=== PATIENT | female | born 1985 | race Caucasian/White ===

== ENCOUNTER 2017-11-09 14:36 | Emergency (ER) | payer OTHER ==
[~2017-11-09] VITALS: Ht 165.1 cm; Wt 45.5 kg
[~2017-11-09 14:36] MED LIST: CLIN300C53 PO; FLO0.4C PO; HYDR-569 PO; KETO10TA2 PO; METO-292 PO; NITR100C6 PO; PHE12.5T PO; POTA20TA19 PO; PROC5TAB56 PO; SUCR1ORA2 PO; TRIM300C14 PO; TRIM300C24 PO
[2017-11-09 16:47] LABS: BASOPHILS % (AUTO) 0.3 % (0-1); EOSINOPHILS # (AUTO) 0.2 X10'3 (0-0.9); EOSINOPHILS % (AUTO) 1.3 % (0-6); HEMATOCRIT 39.7 % (35.0-45.0); HEMOGLOBIN 12.8 g/dl (12.0-16.0); LYMPHOCYTES # (AUTO) 1.8 X10'3 (1.1-4.8); LYMPHOCYTES % (AUTO) 15.5 % (21-51); MEAN CORPUSCULAR HGB CONC 32.4 % (33.0-36.5); MEAN CORPUSCULAR VOLUME 77.2 FL (78-98); MEAN PLATELET VOLUME 8.9 FL (7.4-10.4); MONOCYTES # (AUTO) 0.8 X10'3 (0-0.9); MONOCYTES % (AUTO) 6.8 % (2-12); NEUTROPHILS # (AUTO) 8.6 X10'3 (1.8-7.7); NEUTROPHILS % (AUTO) 76.1 % (42-75); PLATELET COUNT 346 X10'3 (140-440); RED BLOOD COUNT 5.14 X10'6 (4.20-5.60); RED CELL DISTRIBUTION WIDTH 17.3 % (11.5-14.5); WHITE BLOOD COUNT 11.3 X10'3 (4.5-11.0)
[2017-11-09 16:49] LABS: CLARITY,URINE SLIGHTLY CLOUDY (Clear); COLOR,URINE YELLOW (Yellow); GLUCOSE, URINE NEGATIVE (Neg); KETONES,URINE >=80 mg/dl (Neg); LEUKOCYTE ESTERASE ,URINE NEGATIVE (Neg); NITRITES, URINE POSITIVE (Neg); OCCULT BLOOD,URINE TRACE-LYSED (Neg); PROTEIN,URINE NEGATIVE (Neg); UROBILINOGEN,URINE 0.2 E.U/dL (0.2-1.0)
[2017-11-09 16:54] LABS: UA COLLECTION TYPE CLN CATCH MIDSTREAM
[2017-11-09 16:55] LABS: BACTERIA,URINE 4+ /HPF (Neg); RBC,URINE 0-2 /HPF (0-2); WBC,URINE 0-4 /HPF (0-4)
[2017-11-09 16:56] LABS: INR 1.1 INR; PROTHROMBIN TIME 11.7 SECONDS (9.0-12.0)
[2017-11-09 16:56] LABS: MUCUS STRANDS MANY /LPF (Neg); SQUAMOUS EPITHELIAL CELL,UR MODERATE /LPF (FEW); TRANSITIONAL EPI CELLS,URINE FEW /HPF
[2017-11-09 17:07] LABS: ALANINE AMINOTRANSFERASE 22 U/L (12-78); ALBUMIN 4.5 G/DL (3.4-5.0); ALBUMIN/GLOBULIN RATIO 1.2 (1.1-1.5); ALKALINE PHOSPHATASE 51 IU/L (46-116); ANION GAP 12 (8-16); ASPARTATE AMINO TRANSFERASE 11 U/L (10-37); BILIRUBIN,TOTAL 0.6 MG/DL (0.1-1.0); BLOOD UREA NITROGEN 8 MG/DL (7-18); BUN/CREATININE RATIO 9.8 (6.6-38.0); CALCIUM 9.4 MG/DL (8.5-10.1); CHLORIDE 100 MMOL/L (99-107); CREATININE 0.82 MG/DL (0.40-0.90); GLUCOSE 111 MG/DL (70-104); POTASSIUM 3.2 MMOL/L (3.5-5.1); SODIUM 142 MMOL/L (135-145); TOTAL CARBON DIOXIDE 29.7 MMOL/L (24-32); TOTAL PROTEIN 8.3 G/DL (6.4-8.2); eGFR 81 ML/MIN
[2017-11-09] MEDS ORDERED: ketorolac trometh inj. 60 MG/2 ML VIAL IM ONE (18:50)
[2017-11-09] MEDS ORDERED: ondansetron 4mg rapidly disintigrating tab PO ONE (18:50)
[2017-11-09 19:00] LABS: LIPASE 63 U/L (73-393)
[2017-11-09 19:03] LABS: ETHANOL < 0.010 GM/DL (0.0-0.010)
[2017-11-09] MEDS ORDERED: cefTRIAXone 1g/NS 100ml IVPB 100 ML IV ONE (21:00)
[2017-11-09] MEDS ORDERED: CefTRIAXone 1000mg IM Kit (w/lidocaine diluent) IM ONE (21:20)
[2017-11-09] MEDS ORDERED: TRIM300C14 PO (21:27)
[2017-11-09 21:33] LABS: URINE HCG NEGATIVE (NEG)
[2017-11-09 21:42] VITALS: BP 141/84
[2017-11-09 21:44] LABS: URINE AMPHETAMINE SCREEN NEGATIVE (Neg); URINE BARBITUATE SCREEN NEGATIVE (Neg); URINE BENZODIAZEPINES SCREEN NEGATIVE (Neg); URINE CANNABINOID SCREEN POSITIVE (Neg); URINE COCAINE SCREEN NEGATIVE (Neg); URINE METHADONE SCREEN NEGATIVE (Neg); URINE OPIATE SCREEN POSITIVE (Neg); URINE PHENCYCLIDINE SCREEN NEGATIVE (Neg)
== END 2017-11-09 21:44 | disposition home or self-care (01) ==
LOC: ER 14:37
DX: N39.0 Urinary tract infection, site not specified (principal); R10.84 Generalized abdominal pain; R11.2 Nausea with vomiting, unspecified; K21.9 Gastro-esophageal reflux disease without esophagitis; E03.9 Hypothyroidism, unspecified; F32.9 Major depressive disorder, single episode, unspecified; F12.90 Cannabis use, unspecified, uncomplicated; F17.200 Nicotine dependence, unspecified, uncomplicated; Z87.442 Personal history of urinary calculi; Z79.899 Other long term (current) drug therapy
CPT/HCPCS: 36415; 74176; 80053; 80305; 80320; 81001; 81025; 83605; 83690; 84145; 85025; 85610; 87040; 87077; 87088; 87186; 96372; 99285; J0696; J1885

== ENCOUNTER → 2017-11-10 | Emergency (ER) | payer OTHER ==
[~2017-11-10] VITALS: Ht 5451.6 cm; Wt 45.4 kg
[~2017-11-10] MED LIST changes: +ketorolac trometh. 30mg/ml inj. IM ONE
[2017-11-10 05:58] VITALS: BP 127/63
== END | disposition home or self-care (01) ==
LOC: ER 05:05
DX: R10.84 Generalized abdominal pain (principal); G89.29 Other chronic pain; R11.2 Nausea with vomiting, unspecified; K21.9 Gastro-esophageal reflux disease without esophagitis; E03.9 Hypothyroidism, unspecified; F12.10 Cannabis abuse, uncomplicated; Z87.11 Personal history of peptic ulcer disease; Z79.899 Other long term (current) drug therapy
CPT/HCPCS: 96372; 99283; J1885

== ENCOUNTER 2017-11-11 18:29 | Emergency (ER) | payer OTHER ==
[~2017-11-11] VITALS: Ht 165.1 cm; Wt 45.0 kg
[~2017-11-11 18:29] MED LIST changes: -ketorolac trometh. 30mg/ml inj. IM ONE
[2017-11-11 18:46] VITALS: BP 117/82
[2017-11-11] MEDS ORDERED: ondansetron 4mg rapidly disintigrating tab PO ONE (20:35)
[2017-11-11 20:40] LABS: URINE HCG NEGATIVE (NEG)
[2017-11-11 20:41] LABS: CLARITY,URINE CLOUDY (Clear); COLOR,URINE YELLOW (Yellow); GLUCOSE, URINE NEGATIVE (Neg); KETONES,URINE >=80 mg/dl (Neg); LEUKOCYTE ESTERASE ,URINE NEGATIVE (Neg); NITRITES, URINE NEGATIVE (Neg); OCCULT BLOOD,URINE TRACE-LYSED (Neg); PH,URINE 6.5 (4.8-8.0); PROTEIN,URINE NEGATIVE (Neg); UROBILINOGEN,URINE 0.2 E.U/dL (0.2-1.0)
[2017-11-11 20:42] LABS: UA COLLECTION TYPE CLN CATCH MIDSTREAM
[2017-11-11 20:49] LABS: AMORPHOUS PHOSPHATES 4+; BACTERIA,URINE FEW /HPF (Neg); RBC,URINE 0-2 /HPF (0-2); SQUAMOUS EPITHELIAL CELL,UR FEW /LPF (FEW); WBC,URINE NONE SEEN /HPF (0-4)
[2017-11-11] MEDS ORDERED: chlorproMAZINE 25mg/ml inj. IM PRN (21:25)
[2017-11-11] MEDS ORDERED: haloperidol lactate 5mg/ml inj IM ONE (21:50)
== END 2017-11-12 00:23 | disposition home or self-care (01) ==
LOC: ER 18:29
DX: R11.2 Nausea with vomiting, unspecified (principal); R10.9 Unspecified abdominal pain; K21.9 Gastro-esophageal reflux disease without esophagitis; E03.9 Hypothyroidism, unspecified; F15.10 Other stimulant abuse, uncomplicated; Z87.442 Personal history of urinary calculi; Z79.899 Other long term (current) drug therapy
CPT/HCPCS: 81001; 81025; 96372; 99284; J1630; J3230

== ENCOUNTER 2018-03-27 06:49 | Emergency (ER) | payer MEDICAID, OTHER ==
[~2018-03-27] VITALS: Ht 165.1 cm; Wt 52.2 kg
[~2018-03-27 06:49] MED LIST changes: -CLIN300C53 PO; +DULO-31 PO; -KETO10TA2 PO; -METO-292 PO; -NITR100C6 PO; -PHE12.5T PO; -POTA20TA19 PO; -PROC5TAB56 PO; -SUCR1ORA2 PO; -TRIM300C14 PO; -TRIM300C24 PO
[2018-03-27 08:12] VITALS: BP 131/64
[2018-03-27] MEDS ORDERED: BENZ-38 PO (08:13)
[2018-03-27] MEDS ORDERED: ALBU6.7H INH (08:13)
[2018-03-27] MEDS ORDERED: PRED20TA PO (08:13)
[2018-03-27] MEDS ORDERED: predniSONE 20 mg tablet PO ONE (08:15)
[2018-03-27] MEDS ORDERED: ipratropium/albuterol 3ml nebule NEB ONE (08:15)
[2018-03-27] MEDS ORDERED: ONDA4TAB12 PO (18:41)
== END 2018-03-27 08:46 | disposition home or self-care (01) ==
LOC: ER 06:50
DX: J06.9 Acute upper respiratory infection, unspecified (principal); J45.909 Unspecified asthma, uncomplicated; F17.200 Nicotine dependence, unspecified, uncomplicated; K21.9 Gastro-esophageal reflux disease without esophagitis; E03.9 Hypothyroidism, unspecified; F12.10 Cannabis abuse, uncomplicated; Z79.899 Other long term (current) drug therapy
CPT/HCPCS: 71045; 94640; 94760; 99283; J7512

== ENCOUNTER 2018-03-27 12:25 | Emergency (ER) | payer MEDICAID, OTHER ==
[~2018-03-27] VITALS: Ht 165.1 cm; Wt 50.3 kg
[~2018-03-27 12:25] MED LIST changes: +ALBU6.7H INH; +BENZ-38 PO; +PRED20TA PO
[2018-03-27 13:23] LABS: BASOPHILS % (AUTO) 0.4 % (0-1); EOSINOPHILS # (AUTO) 0.2 X10'3 (0-0.9); EOSINOPHILS % (AUTO) 1.5 % (0-6); HEMATOCRIT 36.2 % (35.0-45.0); HEMOGLOBIN 11.8 g/dl (12.0-16.0); LYMPHOCYTES # (AUTO) 0.5 X10'3 (1.1-4.8); LYMPHOCYTES % (AUTO) 3.5 % (21-51); MEAN CORPUSCULAR HEMOGLOBIN 23.4 PG (27.0-31.0); MEAN CORPUSCULAR HGB CONC 32.5 % (33.0-36.5); MEAN CORPUSCULAR VOLUME 72.2 FL (78-98); MEAN PLATELET VOLUME 8.3 FL (7.4-10.4); MONOCYTES # (AUTO) 0.3 X10'3 (0-0.9); NEUTROPHILS % (AUTO) 92.6 % (42-75); PLATELET COUNT 292 X10'3 (140-440); RED BLOOD COUNT 5.02 X10'6 (4.20-5.60); WHITE BLOOD COUNT 12.9 X10'3 (4.5-11.0)
[2018-03-27 13:28] LABS: PROTHROMBIN TIME 10.7 SECONDS (9.0-12.0)
[2018-03-27 13:32] LABS: ALANINE AMINOTRANSFERASE 23 U/L (12-78); ALBUMIN 4.4 G/DL (3.4-5.0); ALBUMIN/GLOBULIN RATIO 1.1 (1.1-1.5); ALKALINE PHOSPHATASE 57 IU/L (46-116); ANION GAP 12 (8-16); ASPARTATE AMINO TRANSFERASE 16 U/L (10-37); BILIRUBIN,TOTAL 0.6 MG/DL (0.1-1.0); BLOOD UREA NITROGEN 12 MG/DL (7-18); CALCIUM 9.3 MG/DL (8.5-10.1); CHLORIDE 103 MMOL/L (99-107); CREATININE 0.75 MG/DL (0.40-0.90); GLUCOSE 169 MG/DL (70-104); POTASSIUM 3.7 MMOL/L (3.5-5.1); SODIUM 140 MMOL/L (135-145); TOTAL CARBON DIOXIDE 24.9 MMOL/L (24-32); TOTAL PROTEIN 8.3 G/DL (6.4-8.2); eGFR 90 ML/MIN
[2018-03-27 16:43] LABS: CLARITY,URINE SLIGHTLY CLOUDY (Clear); COLOR,URINE YELLOW (Yellow); GLUCOSE, URINE 100 mg/dl (Neg); KETONES,URINE >=80 mg/dl (Neg); LEUKOCYTE ESTERASE ,URINE NEGATIVE (Neg); NITRITES, URINE NEGATIVE (Neg); OCCULT BLOOD,URINE TRACE-INTACT (Neg); PH,URINE 6.5 (4.8-8.0); PROTEIN,URINE TRACE mg/dl (Neg); UA COLLECTION TYPE CLN CATCH MIDSTREAM; UROBILINOGEN,URINE 0.2 E.U/dL (0.2-1.0)
[2018-03-27 16:48] LABS: MUCUS STRANDS MODERATE /LPF (Neg); SQUAMOUS EPITHELIAL CELL,UR MODERATE /LPF (FEW)
[2018-03-27 16:49] LABS: BACTERIA,URINE 1+ /HPF (Neg); RBC,URINE 0-2 /HPF (0-2); WBC,URINE 0-4 /HPF (0-4)
[2018-03-27] MEDS ORDERED: normal saline 1000ML IV soln IVB ONE (17:00)
[2018-03-27] MEDS ORDERED: diphenhydrAMINE 50 mg/ml inj IV ONE (17:20)
[2018-03-27] MEDS ORDERED: ondansetron/PF 4mg/2ml inj IV ONE (17:20)
[2018-03-27] MEDS ORDERED: haloperidol lactate 5mg/ml inj IM ONE (17:20)
[2018-03-27] MEDS ORDERED: LORazepam 2 mg/ml vial IV ONE (17:20)
[2018-03-27] MEDS ORDERED: famotidine 20mg tablet PO ONE (17:20)
[2018-03-27] MEDS ORDERED: proCHLORperazine 10 MG/2 ml inj IV ONE (17:20)
[2018-03-27 17:27] LABS: URINE HCG NEGATIVE (NEG)
[2018-03-27] MEDS ORDERED: ONDA4TAB12 PO (18:41)
[2018-03-28 02:28] VITALS: BP 109/62
== END 2018-03-28 02:36 | disposition home or self-care (01) ==
LOC: ER 12:25
DX: F12.10 Cannabis abuse, uncomplicated (principal); R11.2 Nausea with vomiting, unspecified; R10.30 Lower abdominal pain, unspecified; K21.9 Gastro-esophageal reflux disease without esophagitis; E03.9 Hypothyroidism, unspecified; F17.200 Nicotine dependence, unspecified, uncomplicated
CPT/HCPCS: 36415; 80053; 81001; 81025; 85025; 85610; 93005; 96361; 96372; 96374; 96375; 99285; J0780; J1200; J1630; J2060; J2405; J7030

== ENCOUNTER 2018-05-01 00:06 | Emergency (ER) | payer MEDICAID, OTHER ==
[~2018-05-01] VITALS: Ht 165.1 cm; Wt 53.0 kg
[~2018-05-01 00:06] MED LIST changes: -BENZ-38 PO; +ONDA4TAB12 PO; +ONDA4TAB9 PO; +PHE25R PR; -PRED20TA PO
[2018-05-01] MEDS ORDERED: HYDROcodone/acetaminophen 5mg/325mg tablet PO STA (00:13)
[2018-05-01] MEDS ORDERED: LIDOcaine Viscous 15ml cup MM PRN (02:10)
[2018-05-01] MEDS ORDERED: TETanus/Pertussis (Acell)/Diphther VAC/PF (Tdap-Adult) 0.5ml syringe IMVAC ONE (02:10)
[2018-05-01] MEDS ORDERED: HYDROcodone/acetaminophen 10/325mg tab PO ONE (02:10)
[2018-05-01] MEDS ORDERED: AMOX-422 PO (03:26)
[2018-05-01] MEDS ORDERED: HYDR-569 PO (03:26)
[2018-05-01 04:21] VITALS: BP 124/75
== END 2018-05-01 04:24 | disposition home or self-care (01) ==
LOC: ER 00:07
DX: S61.452A Open bite of left hand, initial encounter (principal); K21.9 Gastro-esophageal reflux disease without esophagitis; E03.9 Hypothyroidism, unspecified; F17.200 Nicotine dependence, unspecified, uncomplicated; F12.90 Cannabis use, unspecified, uncomplicated; Z79.899 Other long term (current) drug therapy; W54.0XXA Bitten by dog, initial encounter; Y93.89 Activity, other specified; Y92.89 Other specified places as the place of occurrence of the external cause; Y99.8 Other external cause status
CPT/HCPCS: 29130; 73130; 90471; 90715; 99284; A6449

== ENCOUNTER 2018-05-05 00:44 | Emergency (ER) | payer MEDICAID, OTHER ==
[~2018-05-05] VITALS: Ht 165.1 cm; Wt 52.7 kg
[~2018-05-05 00:44] MED LIST changes: +AMOX-422 PO
[2018-05-05 00:50] VITALS: BP 104/57
[2018-05-05] MEDS ORDERED: HYDR-569 PO (01:52)
[2018-05-05] MEDS ORDERED: IBUP-1984 PO (01:52)
== END 2018-05-05 02:16 | disposition home or self-care (01) ==
LOC: ER 00:45
DX: S61.452D Open bite of left hand, subsequent encounter (principal); K21.9 Gastro-esophageal reflux disease without esophagitis; E03.9 Hypothyroidism, unspecified; F12.90 Cannabis use, unspecified, uncomplicated; Z79.899 Other long term (current) drug therapy; W54.0XXD Bitten by dog, subsequent encounter
CPT/HCPCS: 99283

== ENCOUNTER 2018-05-14 22:24 | Emergency (ER) | payer OTHER ==
[~2018-05-14] VITALS: Ht 165.1 cm; Wt 54.0 kg
[~2018-05-14 22:24] MED LIST changes: -AMOX-422 PO; +IBUP-1984 PO
[2018-05-14 22:28] VITALS: BP 106/65
== END 2018-05-15 01:01 | disposition home or self-care (01) ==
LOC: ER 22:24
DX: S62.502G Fracture of unspecified phalanx of left thumb, subsequent encounter for fracture with delayed healing (principal); S62.607G Fracture of unspecified phalanx of left little finger, subsequent encounter for fracture with delayed healing; K21.9 Gastro-esophageal reflux disease without esophagitis; E03.9 Hypothyroidism, unspecified; F12.90 Cannabis use, unspecified, uncomplicated; Z79.899 Other long term (current) drug therapy; X58.XXXD Exposure to other specified factors, subsequent encounter
CPT/HCPCS: 29130; 99283

== ENCOUNTER 2018-06-03 02:09 | Emergency (ER) | payer OTHER ==
[~2018-06-03] VITALS: Ht 160 cm; Wt 50.5 kg
[~2018-06-03 02:09] MED LIST changes: -ONDA4TAB9 PO
[2018-06-03] MEDS ORDERED: metoclopramide 5 mg/ml inj IV ONE (03:05)
[2018-06-03] MEDS ORDERED: diphenhydrAMINE 50 mg/ml inj IV ONE (03:05)
[2018-06-03] MEDS ORDERED: normal saline 1000ML IV soln IVB ONE ×2 (03:05)
[2018-06-03] MEDS ORDERED: LORazepam 2 mg/ml vial IV ONE (03:05)
[2018-06-03 04:08] LABS: BASOPHILS % (AUTO) 0.1 % (0-1); EOSINOPHILS # (AUTO) 0.1 X10'3 (0-0.9); HEMATOCRIT 38.2 % (35.0-45.0); HEMOGLOBIN 12.3 g/dl (12.0-16.0); LYMPHOCYTES # (AUTO) 0.8 X10'3 (1.1-4.8); LYMPHOCYTES % (AUTO) 6.2 % (21-51); MEAN CORPUSCULAR HEMOGLOBIN 24.4 PG (27.0-31.0); MEAN CORPUSCULAR HGB CONC 32.3 % (33.0-36.5); MEAN CORPUSCULAR VOLUME 75.6 FL (78-98); MEAN PLATELET VOLUME 9.5 FL (7.4-10.4); MONOCYTES # (AUTO) 0.7 X10'3 (0-0.9); NEUTROPHILS % (AUTO) 87.7 % (42-75); PLATELET COUNT 310 X10'3 (140-440); RED BLOOD COUNT 5.05 X10'6 (4.20-5.60); RED CELL DISTRIBUTION WIDTH 21.3 % (11.5-14.5); WHITE BLOOD COUNT 13.7 X10'3 (4.5-11.0)
[2018-06-03 04:22] LABS: ALANINE AMINOTRANSFERASE 21 U/L (12-78); ALBUMIN 4.9 G/DL (3.4-5.0); ALBUMIN/GLOBULIN RATIO 1.1 (1.1-1.5); ALKALINE PHOSPHATASE 59 IU/L (46-116); ANION GAP 16 (8-16); ASPARTATE AMINO TRANSFERASE 16 U/L (10-37); BILIRUBIN,TOTAL 0.6 MG/DL (0.1-1.0); BLOOD UREA NITROGEN 13 MG/DL (7-18); BUN/CREATININE RATIO 16.5 (6.6-38.0); CALCIUM 10.4 MG/DL (8.5-10.1); CHLORIDE 97 MMOL/L (99-107); CREATININE 0.79 MG/DL (0.40-0.90); GLUCOSE 118 MG/DL (70-104); LIPASE 66 U/L (73-393); POTASSIUM 3.6 MMOL/L (3.5-5.1); SODIUM 139 MMOL/L (135-145); TOTAL CARBON DIOXIDE 26.3 MMOL/L (24-32); TOTAL PROTEIN 9.3 G/DL (6.4-8.2); eGFR 84 ML/MIN
[2018-06-03 04:55] LABS: ANISOCYTOSIS 3+; ELLIPTOCYTES FEW; PLATELET ESTIMATE NORMAL; POLYCHROMASIA FEW
[2018-06-03 06:25] VITALS: BP 139/71
== END 2018-06-03 06:28 | disposition home or self-care (01) ==
LOC: ER 02:10
DX: E86.0 Dehydration (principal); R11.2 Nausea with vomiting, unspecified; R10.84 Generalized abdominal pain; M54.9 Dorsalgia, unspecified; M54.2 Cervicalgia; K21.9 Gastro-esophageal reflux disease without esophagitis; E03.9 Hypothyroidism, unspecified; F12.90 Cannabis use, unspecified, uncomplicated; Z79.899 Other long term (current) drug therapy
CPT/HCPCS: 36415; 80053; 83690; 85025; 96361; 96374; 96375; 99284; J1200; J2060; J2765; J7030

== ENCOUNTER 2018-07-04 20:30 | Emergency (ER) | payer OTHER ==
[~2018-07-04] VITALS: Ht 165.1 cm; Wt 48.2 kg
[~2018-07-04 20:30] MED LIST changes: -IBUP-1984 PO
[2018-07-04 20:38] VITALS: BP 118/70
[2018-07-04] MEDS ORDERED: haloperidol lactate 5mg/ml inj IM ONE (22:00)
[2018-07-04] MEDS ORDERED: normal saline 1000ml 1,000 ML IV ONE (22:00)
[2018-07-04] MEDS ORDERED: LORazepam 2 mg/ml vial IV ONE (22:00)
[2018-07-04 22:31] LABS: BASOPHILS # (AUTO) 0.1 X10'3 (0-0.2); BASOPHILS % (AUTO) 0.6 % (0-1); EOSINOPHILS # (AUTO) 0.2 X10'3 (0-0.9); EOSINOPHILS % (AUTO) 1.4 % (0-6); HEMATOCRIT 35.9 % (35.0-45.0); HEMOGLOBIN 11.8 g/dl (12.0-16.0); LYMPHOCYTES # (AUTO) 0.6 X10'3 (1.1-4.8); LYMPHOCYTES % (AUTO) 4.3 % (21-51); MEAN CORPUSCULAR HEMOGLOBIN 24.6 PG (27.0-31.0); MEAN CORPUSCULAR VOLUME 74.7 FL (78-98); MEAN PLATELET VOLUME 8.7 FL (7.4-10.4); MONOCYTES # (AUTO) 0.4 X10'3 (0-0.9); MONOCYTES % (AUTO) 3.1 % (2-12); NEUTROPHILS # (AUTO) 12.9 X10'3 (1.8-7.7); NEUTROPHILS % (AUTO) 90.6 % (42-75); PLATELET COUNT 352 X10'3 (140-440); RED BLOOD COUNT 4.81 X10'6 (4.20-5.60); RED CELL DISTRIBUTION WIDTH 20.2 % (11.5-14.5); WHITE BLOOD COUNT 14.2 X10'3 (4.5-11.0)
[2018-07-04 22:45] LABS: ALANINE AMINOTRANSFERASE 16 U/L (12-78); ALBUMIN 4.5 G/DL (3.4-5.0); ALKALINE PHOSPHATASE 58 IU/L (46-116); ANION GAP 13 (8-16); ASPARTATE AMINO TRANSFERASE 18 U/L (10-37); BILIRUBIN,TOTAL 0.5 MG/DL (0.1-1.0); BLOOD UREA NITROGEN 15 MG/DL (7-18); BUN/CREATININE RATIO 19.5 (6.6-38.0); CALCIUM 9.6 MG/DL (8.5-10.1); CHLORIDE 99 MMOL/L (99-107); CREATININE 0.77 MG/DL (0.40-0.90); GLUCOSE 153 MG/DL (70-104); POTASSIUM 3.4 MMOL/L (3.5-5.1); SODIUM 137 MMOL/L (135-145); TOTAL CARBON DIOXIDE 25.2 MMOL/L (24-32); TOTAL PROTEIN 8.8 G/DL (6.4-8.2); eGFR 87 ML/MIN
[2018-07-04 23:04] LABS: ANISOCYTOSIS 2+; PLATELET ESTIMATE NORMAL
[2018-07-05 00:35] LABS: URINE HCG NEGATIVE (NEG)
[2018-07-05 00:38] LABS: CLARITY,URINE CLEAR (Clear); COLOR,URINE YELLOW (Yellow); GLUCOSE, URINE NEGATIVE (Neg); KETONES,URINE 40 mg/dl (Neg); LEUKOCYTE ESTERASE ,URINE NEGATIVE (Neg); NITRITES, URINE NEGATIVE (Neg); OCCULT BLOOD,URINE LARGE (Neg); PROTEIN,URINE TRACE mg/dl (Neg); UROBILINOGEN,URINE 0.2 E.U/dL (0.2-1.0)
[2018-07-05 00:42] LABS: URINE AMPHETAMINE SCREEN NEGATIVE (Neg); URINE BARBITUATE SCREEN NEGATIVE (Neg); URINE BENZODIAZEPINES SCREEN NEGATIVE (Neg); URINE CANNABINOID SCREEN POSITIVE (Neg); URINE COCAINE SCREEN NEGATIVE (Neg); URINE METHADONE SCREEN NEGATIVE (Neg); URINE OPIATE SCREEN NEGATIVE (Neg); URINE PHENCYCLIDINE SCREEN NEGATIVE (Neg)
[2018-07-05 00:45] LABS: UA COLLECTION TYPE STRAIGHT CATH
[2018-07-05 00:52] LABS: MUCUS STRANDS MANY /LPF (Neg); SQUAMOUS EPITHELIAL CELL,UR MANY /LPF (FEW)
[2018-07-05 00:53] LABS: BACTERIA,URINE FEW /HPF (Neg); RBC,URINE 20-50 /HPF (0-2); WBC,URINE 0-4 /HPF (0-4)
== END 2018-07-05 01:10 | disposition home or self-care (01) ==
LOC: ER 20:30
DX: F12.288 Cannabis dependence with other cannabis-induced disorder (principal); K21.9 Gastro-esophageal reflux disease without esophagitis; E03.9 Hypothyroidism, unspecified; Z88.1 Allergy status to other antibiotic agents; Z79.899 Other long term (current) drug therapy
CPT/HCPCS: 36415; 80053; 80305; 81001; 81025; 85025; 96361; 96372; 96374; 99285; J1630; J2060; J7030

== ENCOUNTER 2018-11-06 16:45 | Emergency (ER) | payer OTHER ==
[~2018-11-06] VITALS: Ht 167.6 cm; Wt 57.7 kg
[~2018-11-06 16:45] MED LIST changes: +HYDR-4383 PO; -HYDR-569 PO
[2018-11-06] MEDS ORDERED: normal saline 1000ML IV soln IVB ONE (18:45)
[2018-11-06] MEDS ORDERED: ondansetron/PF 4mg/2ml inj IV ONE (18:45)
[2018-11-06] MEDS ORDERED: ketorolac trometh inj. 60 MG/2 ML VIAL IM ONE (18:45)
[2018-11-06] MEDS ORDERED: LORazepam 2 mg/ml vial IV ONE (18:50)
--- NOTE | 2018-11-06 19:33 | NUR ---
pt is resting quietly on gurney, gave pt warm blanket, 1st liter NS infusing w/o, family at bedside
[2018-11-06] MEDS ORDERED: mag hydrox/Alum hydrox/simeth 30ml oral suspension PO ONE (20:25)
[2018-11-06] MEDS ORDERED: famotidine 20mg tablet PO ONE (20:25)
[2018-11-06] MEDS ORDERED: pantoprazole 40 MG vial IV ONE (20:25)
[2018-11-06] MEDS ORDERED: ONDA8TAB6 PO (20:27)
[2018-11-06 20:49] VITALS: BP 120/63
--- NOTE | 2018-11-06 20:50 | NUR ---
pt vic water well, no n/v, vic PO med well, plan to dc home
== END 2018-11-06 21:10 | disposition home or self-care (01) ==
LOC: ER 16:46
DX: R10.9 Unspecified abdominal pain (principal); K52.9 Noninfective gastroenteritis and colitis, unspecified; K21.9 Gastro-esophageal reflux disease without esophagitis; E03.9 Hypothyroidism, unspecified; F12.90 Cannabis use, unspecified, uncomplicated; Z88.1 Allergy status to other antibiotic agents; Z79.899 Other long term (current) drug therapy
CPT/HCPCS: 96361; 96372; 96374; 96375; 99283; C9113; J1885; J2060; J2405; J7030

== ENCOUNTER 2019-02-14 00:56 | Emergency (ER) | payer OTHER ==
[~2019-02-14] VITALS: Ht 165.1 cm; Wt 56.1 kg
[~2019-02-14 00:56] MED LIST changes: +CYCL-1 PO; +ONDA8TAB6 PO
[2019-02-14 01:08] VITALS: BP 97/62
--- NOTE | 2019-02-14 01:25 | NUR ---
PT PRESENTS WITH 6 INCH REDDENED, EDEMATOUS AREA TO L INNER THIGH. HX OF SAME, DENIES MRSA HX.
[2019-02-14] MEDS ORDERED: ibuprofen tablet 400 MG TABLET PO ONE (02:45)
[2019-02-14] MEDS ORDERED: acetaminophen 325mg tablet PO ONE (02:45)
[2019-02-14] MEDS ORDERED: LIDOcaine 1.5% w/epinephrine 1:200,000 5ml ampul IJ ONE (02:55)
[2019-02-14] MEDS ORDERED: LIDOcaine 1% w/epiNEPHrine 1:200,000 30ml vial IJ ONE (02:55)
[2019-02-14] MEDS ORDERED: CLIN150C8 PO (03:53)
--- NOTE | 2019-02-14 03:54 | NUR ---
I&D PER SHANTE K[facility]Y WE[facility], DRESSING OF NEOSPORIN AND LARGE BANDAIDE PLACED. PT GIVEN ADDITIONAL DRESSING SUPLIES FOR TONIGHT AND TOMORROW.
== END 2019-02-14 04:01 | disposition home or self-care (01) ==
LOC: ER 00:57
DX: L02.416 Cutaneous abscess of left lower limb (principal); K21.9 Gastro-esophageal reflux disease without esophagitis; E03.9 Hypothyroidism, unspecified; F12.90 Cannabis use, unspecified, uncomplicated; Z87.442 Personal history of urinary calculi; Z88.1 Allergy status to other antibiotic agents; Z79.899 Other long term (current) drug therapy
CPT/HCPCS: 10060; 99283; J3490

== ENCOUNTER 2019-12-22 11:14 | Emergency (ER) | payer MEDICAID, OTHER ==
[~2019-12-22] VITALS: Ht 165.1 cm; Wt 60.0 kg
[~2019-12-22 11:14] MED LIST changes: -ALBU6.7H INH; +ALBU6.7H9 INH; +CLIN150C8 PO
[2019-12-22 11:28] VITALS: BP 99/60
[2019-12-22] MEDS ORDERED: CYCL-1 PO (12:04)
[2019-12-22] MEDS ORDERED: HYDR-3965 PO (12:04)
[2019-12-22] MEDS ORDERED: ketorolac trometh. 30mg/ml inj. IM ONE (12:05)
== END 2019-12-22 12:21 | disposition home or self-care (01) ==
LOC: ER 11:15
DX: M25.512 Pain in left shoulder (principal); K21.9 Gastro-esophageal reflux disease without esophagitis; E03.9 Hypothyroidism, unspecified; F12.90 Cannabis use, unspecified, uncomplicated; Z87.11 Personal history of peptic ulcer disease; Z87.442 Personal history of urinary calculi; Z88.1 Allergy status to other antibiotic agents; Z79.899 Other long term (current) drug therapy
CPT/HCPCS: 96372; 99283; J1885

== ENCOUNTER 2019-12-24 13:10 | Emergency (ER) | payer MEDICAID, OTHER ==
[~2019-12-24] VITALS: Ht 165.1 cm; Wt 57.0 kg
[~2019-12-24 13:10] MED LIST changes: +HYDR-3965 PO
[2019-12-24 13:24] VITALS: BP 132/84
[2019-12-24] MEDS ORDERED: morphine 4 MG/ML inj SYRINge IM ONE (13:55)
[2019-12-24] MEDS ORDERED: ketorolac tromethamine 15mg/ml inj. IM ONE (13:55)
[2019-12-24 14:31] LABS: BASOPHILS # (AUTO) 0.1 X10'3 (0-0.2); BASOPHILS % (AUTO) 0.9 % (0-1); EOSINOPHILS # (AUTO) 0.1 X10'3 (0-0.9); EOSINOPHILS % (AUTO) 0.6 % (0-6); HEMATOCRIT 37.2 % (35.0-45.0); HEMOGLOBIN 11.7 g/dl (12.0-16.0); LYMPHOCYTES # (AUTO) 2.3 X10'3 (1.1-4.8); LYMPHOCYTES % (AUTO) 19.1 % (21-51); MEAN CORPUSCULAR HEMOGLOBIN 22.4 PG (27.0-31.0); MEAN CORPUSCULAR HGB CONC 31.4 g/dL (33.0-36.5); MEAN CORPUSCULAR VOLUME 71.3 FL (78-98); MEAN PLATELET VOLUME 7.9 FL (7.4-10.4); MONOCYTES # (AUTO) 0.9 X10'3 (0-0.9); MONOCYTES % (AUTO) 7.7 % (2-12); NEUTROPHILS # (AUTO) 8.5 X10'3 (1.8-7.7); NEUTROPHILS % (AUTO) 71.7 % (42-75); PLATELET COUNT 418 X10'3 (140-440); RED BLOOD COUNT 5.21 X10'6 (4.20-5.60); RED CELL DISTRIBUTION WIDTH 19.5 % (11.5-14.5); WHITE BLOOD COUNT 11.9 X10'3 (4.5-11.0)
[2019-12-24 14:47] LABS: ALANINE AMINOTRANSFERASE 19 U/L (12-78); ALBUMIN 4.7 G/DL (3.4-5.0); ALBUMIN/GLOBULIN RATIO 1.1 (1.1-1.5); ALKALINE PHOSPHATASE 72 IU/L (46-116); ANION GAP 7 (8-16); ASPARTATE AMINO TRANSFERASE 21 U/L (10-37); BILIRUBIN,TOTAL 0.3 MG/DL (0.1-1.0); BLOOD UREA NITROGEN 9 MG/DL (7-18); BUN/CREATININE RATIO 12.2 (6.6-38.0); CALCIUM 9.7 MG/DL (8.5-10.1); CHLORIDE 103 MMOL/L (99-107); CREATININE 0.74 MG/DL (0.40-0.90); GLUCOSE 103 MG/DL (70-104); POTASSIUM 3.7 MMOL/L (3.5-5.1); SODIUM 139 MMOL/L (135-145); TOTAL CARBON DIOXIDE 29.5 MMOL/L (24-32); TOTAL PROTEIN 9.1 G/DL (6.4-8.2); eGFR 90 ML/MIN
[2019-12-24] MEDS ORDERED: BUPIVAcaine 0.5% inj/PF 30 ml vial IJ ONE (15:05)
[2019-12-24 15:35] LABS: PLATELET ESTIMATE NORMAL
[2019-12-24 15:36] LABS: ANISOCYTOSIS 2+; MICROCYTOSIS 1+
[2019-12-24 15:38] LABS: HYPOCHROMASIA 1+
== END 2019-12-24 15:48 | disposition home or self-care (01) ==
LOC: ER 13:10
DX: M62.838 Other muscle spasm (principal); M25.512 Pain in left shoulder; M54.2 Cervicalgia; R20.2 Paresthesia of skin; K21.9 Gastro-esophageal reflux disease without esophagitis; E03.9 Hypothyroidism, unspecified; F32.9 Major depressive disorder, single episode, unspecified; F17.200 Nicotine dependence, unspecified, uncomplicated; F12.90 Cannabis use, unspecified, uncomplicated; Z88.0 Allergy status to penicillin; Z79.2 Long term (current) use of antibiotics; Z79.899 Other long term (current) drug therapy
CPT/HCPCS: 20552; 36415; 72050; 73030; 80053; 85025; 96372; 99284; J1885; J2270

== ENCOUNTER 2020-11-24 08:11 | Emergency (ER) | payer MEDICAID ==
[~2020-11-24] VITALS: Ht 165.1 cm; Wt 56.8 kg
[~2020-11-24 08:11] MED LIST changes: -HYDR-3965 PO
[2020-11-24 08:15] VITALS: BP 108/54
== END 2020-11-24 08:58 | disposition home or self-care (01) ==
LOC: ER 08:12
DX: Z11.3 Encounter for screening for infections with a predominantly sexual mode of transmission (principal); K21.9 Gastro-esophageal reflux disease without esophagitis; E78.00 Pure hypercholesterolemia, unspecified; M79.7 Fibromyalgia; F12.90 Cannabis use, unspecified, uncomplicated; Z87.440 Personal history of urinary (tract) infections; Z87.11 Personal history of peptic ulcer disease; Z87.442 Personal history of urinary calculi; Z88.1 Allergy status to other antibiotic agents; Z79.2 Long term (current) use of antibiotics; Z79.899 Other long term (current) drug therapy
CPT/HCPCS: 99281

== ENCOUNTER 2020-12-10 08:08 | Emergency (ER) | payer MEDICAID ==
[~2020-12-10] VITALS: Ht 165.1 cm; Wt 56.8 kg
[2020-12-10 08:19] VITALS: BP 102/62
[2020-12-10] MEDS ORDERED: ketorolac tromethamine 15mg/ml inj. IM ONE (08:50)
== END 2020-12-10 09:31 | disposition home or self-care (01) ==
LOC: ER 08:08
DX: M25.512 Pain in left shoulder (principal); K21.9 Gastro-esophageal reflux disease without esophagitis; E03.9 Hypothyroidism, unspecified; F32.9 Major depressive disorder, single episode, unspecified; F17.200 Nicotine dependence, unspecified, uncomplicated; F12.90 Cannabis use, unspecified, uncomplicated; Z87.11 Personal history of peptic ulcer disease; Z87.442 Personal history of urinary calculi; Z87.440 Personal history of urinary (tract) infections; Z88.1 Allergy status to other antibiotic agents; Z79.2 Long term (current) use of antibiotics; Z79.899 Other long term (current) drug therapy
CPT/HCPCS: 96372; 99283; J1885

== ENCOUNTER 2020-12-11 13:54 | Emergency (ER) | payer MEDICAID ==
[~2020-12-11] VITALS: Ht 165.1 cm; Wt 62.9 kg
[2020-12-11] MEDS ORDERED: diazepam inj 5 MG/ML inj. IM ONE (15:25)
[2020-12-11 15:40] VITALS: BP 107/72
== END 2020-12-11 16:03 | disposition home or self-care (01) ==
LOC: ER 13:55
DX: M54.2 Cervicalgia (principal); M25.512 Pain in left shoulder; R20.0 Anesthesia of skin; K21.9 Gastro-esophageal reflux disease without esophagitis; E03.9 Hypothyroidism, unspecified; M79.7 Fibromyalgia; F32.9 Major depressive disorder, single episode, unspecified; F12.90 Cannabis use, unspecified, uncomplicated; F17.200 Nicotine dependence, unspecified, uncomplicated; Z87.442 Personal history of urinary calculi; Z88.1 Allergy status to other antibiotic agents; Z79.899 Other long term (current) drug therapy
CPT/HCPCS: 96372; 99283; J3360

== ENCOUNTER 2021-02-25 21:58 | Emergency (ER) | payer MEDICAID ==
[~2021-02-25] VITALS: Ht 165.1 cm; Wt 64.5 kg
[2021-02-25 22:03] VITALS: BP 113/75
--- NOTE | 2021-02-25 22:23 | NUR ---
here for a test only
== END 2021-02-25 22:24 | disposition home or self-care (01) ==
LOC: ER 21:58
DX: Z20.822 Contact with and (suspected) exposure to COVID-19 (principal); K21.9 Gastro-esophageal reflux disease without esophagitis; E03.9 Hypothyroidism, unspecified; F32.9 Major depressive disorder, single episode, unspecified; F12.90 Cannabis use, unspecified, uncomplicated; Z87.11 Personal history of peptic ulcer disease; Z87.442 Personal history of urinary calculi; Z87.440 Personal history of urinary (tract) infections; Z88.1 Allergy status to other antibiotic agents; Z79.2 Long term (current) use of antibiotics; Z79.899 Other long term (current) drug therapy
CPT/HCPCS: 87635; 99283; C9803

== ENCOUNTER 2021-04-06 19:36 | Emergency (ER) | payer MEDICAID ==
[~2021-04-06] VITALS: Ht 165.1 cm; Wt 56.0 kg
[2021-04-06 21:33] LABS: URINE HCG NEGATIVE (NEG)
[2021-04-06 21:38] LABS: BASOPHILS % (AUTO) 0.3 % (0-1); EOSINOPHILS # (AUTO) 0.1 X10'3 (0-0.9); EOSINOPHILS % (AUTO) 0.4 % (0-6); HEMATOCRIT 30.4 % (35.0-45.0); HEMOGLOBIN 9.6 g/dl (12.0-16.0); LYMPHOCYTES # (AUTO) 1.2 X10'3 (1.1-4.8); LYMPHOCYTES % (AUTO) 8.6 % (21-51); MEAN CORPUSCULAR HEMOGLOBIN 23.2 PG (27.0-31.0); MEAN CORPUSCULAR HGB CONC 31.7 g/dL (33.0-36.5); MEAN PLATELET VOLUME 7.8 FL (7.4-10.4); MONOCYTES # (AUTO) 1.3 X10'3 (0-0.9); MONOCYTES % (AUTO) 9.6 % (2-12); NEUTROPHILS % (AUTO) 81.1 % (42-75); PLATELET COUNT 394 X10'3 (140-440); RED BLOOD COUNT 4.16 X10'6 (4.20-5.60); RED CELL DISTRIBUTION WIDTH 19.6 % (11.5-14.5); WHITE BLOOD COUNT 13.5 X10'3 (4.5-11.0)
[2021-04-06 21:53] LABS: ALANINE AMINOTRANSFERASE 10 U/L (12-78); ALBUMIN 3.5 G/DL (3.4-5.0); ALBUMIN/GLOBULIN RATIO 0.8 (1.1-1.5); ALKALINE PHOSPHATASE 62 IU/L (46-116); ANION GAP 10 (8-16); ASPARTATE AMINO TRANSFERASE 17 U/L (10-37); BILIRUBIN,TOTAL 0.4 MG/DL (0.1-1.0); BLOOD UREA NITROGEN 12 MG/DL (7-18); BUN/CREATININE RATIO 17.1 (6.6-38.0); CALCIUM 9.2 MG/DL (8.5-10.1); CHLORIDE 101 MMOL/L (99-107); GLUCOSE 89 MG/DL (70-104); LIPASE < 50 U/L (73-393); SODIUM 140 MMOL/L (135-145); TOTAL CARBON DIOXIDE 29.3 MMOL/L (24-32); TOTAL PROTEIN 7.8 G/DL (6.4-8.2); eGFR > 90 ML/MIN
[2021-04-06 22:04] LABS: CLARITY,URINE CLOUDY (Clear); GLUCOSE, URINE NEGATIVE (Neg); KETONES,URINE TRACE mg/dl (Neg); LEUKOCYTE ESTERASE ,URINE TRACE (Neg); NITRITES, URINE POSITIVE (Neg); OCCULT BLOOD,URINE NEGATIVE (Neg); PROTEIN,URINE 30 mg/dl (Neg)
[2021-04-06 22:11] LABS: POTASSIUM 2.9 MMOL/L (3.5-5.1)
[2021-04-06 22:15] LABS: COLOR,URINE DARK YELLOW (Yellow); UA COLLECTION TYPE CLN CATCH MIDSTREAM
[2021-04-06 22:23] LABS: BACTERIA,URINE 4+ /HPF (Neg); MUCUS STRANDS MANY /LPF (Neg); RBC,URINE 0-2 /HPF (0-2); SQUAMOUS EPITHELIAL CELL,UR FEW /LPF (FEW)
[2021-04-06] MEDS ORDERED: ondansetron/PF 4mg/2ml inj IV ONE (22:35)
[2021-04-06] MEDS ORDERED: CefTRIAXone 2gm/D5W 50ml BAG 50 ML IV ONE (22:35)
[2021-04-06] MEDS ORDERED: normal saline 1000ML IV soln IVB ONE (22:35)
[2021-04-06] MEDS ORDERED: morphine 4 MG/ML inj SYRINge IV PRN (22:35)
[2021-04-06 23:36] LABS: ANISOCYTOSIS 2+; HYPOCHROMASIA 1+; MICROCYTOSIS 1+; PLATELET ESTIMATE NORMAL
[2021-04-06 23:56] VITALS: BP 97/51
[2021-04-07] MEDS ORDERED: CEPH-585 PO (01:04)
== END 2021-04-07 03:48 | disposition home or self-care (01) ==
LOC: ER 19:38
DX: U07.1 COVID-19 (principal); R43.8 Other disturbances of smell and taste; R11.0 Nausea; R10.30 Lower abdominal pain, unspecified; R30.9 Painful micturition, unspecified; K59.00 Constipation, unspecified; N39.0 Urinary tract infection, site not specified; K21.9 Gastro-esophageal reflux disease without esophagitis; E03.9 Hypothyroidism, unspecified; F32.9 Major depressive disorder, single episode, unspecified; F17.200 Nicotine dependence, unspecified, uncomplicated; F12.90 Cannabis use, unspecified, uncomplicated; Z87.11 Personal history of peptic ulcer disease; Z87.442 Personal history of urinary calculi; Z87.440 Personal history of urinary (tract) infections; Z88.1 Allergy status to other antibiotic agents; Z79.2 Long term (current) use of antibiotics; Z79.899 Other long term (current) drug therapy
CPT/HCPCS: 36415; 74176; 80053; 81001; 81025; 83690; 85008; 85025; 87077; 87088; 87186; 87635; 96365; 96375; 99284; C9803; J0696; J2270; J2405; J7030

== ENCOUNTER 2021-04-17 16:26 | Emergency (ER) | payer MEDICAID ==
[~2021-04-17] VITALS: Ht 162.6 cm; Wt 54.5 kg
[~2021-04-17 16:26] MED LIST changes: +CEPH-585 PO
--- NOTE | 2021-04-17 17:31 | NUR ---
PATIENT WAS SEEN AND TREATED PER ER MD. DISCHARGE INSTRUCTIONS GIVEN TO PATIENT VERBALLY PER ER MD AND DEPARTED, IN GOOD CONDITION, PRIOR TO RECEIVING WRITTEN DC INSTRUCTIONS.
== END 2021-04-17 17:34 | disposition home or self-care (01) ==
LOC: ER 16:27
DX: U07.1 COVID-19 (principal); B34.9 Viral infection, unspecified; R50.9 Fever, unspecified; K21.9 Gastro-esophageal reflux disease without esophagitis; E03.9 Hypothyroidism, unspecified; F32.9 Major depressive disorder, single episode, unspecified; F12.90 Cannabis use, unspecified, uncomplicated; Z87.11 Personal history of peptic ulcer disease; Z87.442 Personal history of urinary calculi; Z87.440 Personal history of urinary (tract) infections; Z88.1 Allergy status to other antibiotic agents; Z79.2 Long term (current) use of antibiotics; Z79.899 Other long term (current) drug therapy
CPT/HCPCS: 99281

== ENCOUNTER 2021-05-10 18:27 | Emergency (ER) | payer MEDICAID ==
[~2021-05-10] VITALS: Ht 165.1 cm; Wt 58.1 kg
[2021-05-10 18:42] VITALS: BP 107/63
[2021-05-10 19:58] LABS: CLARITY,URINE CLEAR (Clear); COLOR,URINE YELLOW (Yellow); GLUCOSE, URINE NEGATIVE (Neg); KETONES,URINE NEGATIVE (Neg); LEUKOCYTE ESTERASE ,URINE NEGATIVE (Neg); NITRITES, URINE NEGATIVE (Neg); OCCULT BLOOD,URINE NEGATIVE (Neg); PROTEIN,URINE NEGATIVE (Neg); UROBILINOGEN,URINE 0.2 E.U/dL (0.2-1.0)
[2021-05-10 20:00] LABS: URINE HCG NEGATIVE (NEG)
[2021-05-10 20:08] LABS: UA COLLECTION TYPE CLN CATCH MIDSTREAM
== END 2021-05-10 23:46 | disposition left against medical advice (07) ==
LOC: ER 18:28
DX: R30.0 Dysuria (principal); Z53.21 Procedure and treatment not carried out due to patient leaving prior to being seen by health care provider
CPT/HCPCS: 81003; 81025

== ENCOUNTER 2021-11-25 15:22 | Emergency (ER) | payer MEDICAID ==
[~2021-11-25] VITALS: Ht 167.6 cm; Wt 56.0 kg
[2021-11-25 15:39] VITALS: BP 121/86
== END 2021-11-25 18:40 | disposition home or self-care (01) ==
LOC: ER 15:23
DX: U07.1 COVID-19 (principal); K21.9 Gastro-esophageal reflux disease without esophagitis; E03.9 Hypothyroidism, unspecified; F12.90 Cannabis use, unspecified, uncomplicated; Z87.442 Personal history of urinary calculi; Z88.2 Allergy status to sulfonamides; Z88.1 Allergy status to other antibiotic agents
CPT/HCPCS: 36415; 99283; U0003; U0005

== ENCOUNTER 2021-12-02 14:33 | Emergency (ER) | payer MEDICAID ==
[~2021-12-02] VITALS: Ht 167.6 cm; Wt 56.0 kg
[2021-12-02 14:56] VITALS: BP 105/68
[2021-12-02] MEDS ORDERED: ONDA-103 PO (15:37)
[2021-12-02] MEDS ORDERED: BUDE180A INH (15:37)
[2021-12-02] MEDS ORDERED: ALBU6.7H9 INH (15:37)
[2021-12-02] MEDS ORDERED: LEVO500T90 PO (15:37)
== END 2021-12-02 15:52 | disposition home or self-care (01) ==
LOC: ER 14:34
DX: U07.1 COVID-19 (principal); J40 Bronchitis, not specified as acute or chronic; K21.9 Gastro-esophageal reflux disease without esophagitis; E03.9 Hypothyroidism, unspecified; M79.7 Fibromyalgia; F12.90 Cannabis use, unspecified, uncomplicated; F17.210 Nicotine dependence, cigarettes, uncomplicated; Z88.1 Allergy status to other antibiotic agents; Z88.8 Allergy status to other drugs, medicaments and biological substances; Z79.899 Other long term (current) drug therapy
CPT/HCPCS: 71045; 99283

== ENCOUNTER 2022-04-20 14:02 | Emergency (ER) | payer MEDICAID ==
[~2022-04-20] VITALS: Ht 167.6 cm; Wt 54.5 kg
[~2022-04-20 14:02] MED LIST changes: +BUDE180A INH; -CEPH-585 PO; +ONDA-103 PO
[2022-04-20 14:47] VITALS: BP 162/63
[2022-04-20] MEDS ORDERED: clindamycin 150mg capsule PO ONE (18:00)
[2022-04-20] MEDS ORDERED: CLIN300C54 PO (18:06)
== END 2022-04-20 18:15 | disposition home or self-care (01) ==
LOC: ER 14:02
DX: L73.2 Hidradenitis suppurativa (principal); K21.9 Gastro-esophageal reflux disease without esophagitis; E03.9 Hypothyroidism, unspecified; M79.7 Fibromyalgia; F17.200 Nicotine dependence, unspecified, uncomplicated; F12.90 Cannabis use, unspecified, uncomplicated; Z87.11 Personal history of peptic ulcer disease; Z87.440 Personal history of urinary (tract) infections; Z87.442 Personal history of urinary calculi; Z88.2 Allergy status to sulfonamides; Z88.1 Allergy status to other antibiotic agents; Z88.8 Allergy status to other drugs, medicaments and biological substances; Z79.899 Other long term (current) drug therapy; Z79.2 Long term (current) use of antibiotics
CPT/HCPCS: 99283

== ENCOUNTER 2023-01-06 04:48 | Emergency (ER) | payer MEDICAID ==
[~2023-01-06] VITALS: Ht 167.6 cm; Wt 54.5 kg
[~2023-01-06 04:48] MED LIST changes: +ALBU6.7H14 INH; -ALBU6.7H9 INH
[2023-01-06 04:50] VITALS: BP 102/65
[2023-01-06] MEDS ORDERED: clindamycin 150mg capsule PO ONE (06:50)
[2023-01-06] MEDS ORDERED: ondansetron 4mg rapidly disintigrating tab PO ONE (06:50)
[2023-01-06] MEDS ORDERED: LIDOcaine 1% W/epiNEPHrine 1:100,000 20ml vial SQ ONE (06:50)
[2023-01-06] MEDS ORDERED: LIDOCAINE 2%/EPI 1:100,000 inj. Multi-dose 20 ML VIAL SQ ONE (06:55)
--- NOTE | 2023-01-06 07:13 | NUR ---
Dr. Churchill at bedside to remove the left lip piercing
[2023-01-06] MEDS ORDERED: CLIN300C54 PO ×2 (07:27→14:40)
[2023-01-06] MEDS ORDERED: HYDR-3972 PO ×2 (07:27→14:40)
== END 2023-01-06 07:56 | disposition home or self-care (01) ==
LOC: ER 04:48
DX: S00.551A Superficial foreign body of lip, initial encounter (principal); X58.XXXA Exposure to other specified factors, initial encounter; Y93.89 Activity, other specified; Y92.89 Other specified places as the place of occurrence of the external cause; Y99.8 Other external cause status
CPT/HCPCS: 99283; 99284; A6449

== ENCOUNTER 2024-03-29 15:24 | Emergency (ER) | payer MEDICAID ==
[~2024-03-29] VITALS: Ht 167.6 cm; Wt 56.0 kg
[~2024-03-29 15:24] MED LIST changes: +CLIN-214 PO; -CLIN150C8 PO
[2024-03-29 16:03] LABS: BASOPHILS % (AUTO) 0.5 % (0-1); EOSINOPHILS # (AUTO) 0.1 X10'3 (0-0.9); EOSINOPHILS % (AUTO) 1.3 % (0-6); HEMATOCRIT 33.3 % (35.0-45.0); HEMOGLOBIN 10.7 g/dl (12.0-16.0); LYMPHOCYTES # (AUTO) 1.8 X10'3 (1.1-4.8); MEAN CORPUSCULAR HEMOGLOBIN 24.2 PG (27.0-31.0); MEAN CORPUSCULAR HGB CONC 32.1 g/dL (33.0-36.5); MEAN CORPUSCULAR VOLUME 75.3 FL (78-98); MONOCYTES # (AUTO) 0.8 X10'3 (0-0.9); MONOCYTES % (AUTO) 8.2 % (2-12); NEUTROPHILS # (AUTO) 6.4 X10'3 (1.8-7.7); PLATELET COUNT 280 X10'3 (140-440); RED BLOOD COUNT 4.42 X10'6 (4.20-5.60); RED CELL DISTRIBUTION WIDTH 18.8 % (11.5-14.5); WHITE BLOOD COUNT 9.2 X10'3 (4.5-11.0)
[2024-03-29 16:16] LABS: ALANINE AMINOTRANSFERASE 17 U/L (12-78); ALBUMIN 3.8 G/DL (3.4-5.0); ALKALINE PHOSPHATASE 62 IU/L (46-116); ANION GAP 8 (8-16); ASPARTATE AMINO TRANSFERASE 11 U/L (10-37); BILIRUBIN,TOTAL 0.2 MG/DL (0.1-1.0); BLOOD UREA NITROGEN 12 MG/DL (7-18); BUN/CREATININE RATIO 17.9 (10.0-20.0); CALCIUM 9.3 MG/DL (8.5-10.1); CHLORIDE 101 MMOL/L (99-107); CREATININE 0.67 MG/DL (0.40-0.90); GLUCOSE 109 MG/DL (70-104); POTASSIUM 3.6 MMOL/L (3.5-5.1); SODIUM 137 MMOL/L (135-145); TOTAL CARBON DIOXIDE 28.4 MMOL/L (24-32); TOTAL PROTEIN 7.5 G/DL (6.4-8.2); eCRCL 101 ML/MIN; eGFR > 90 ML/MIN
[2024-03-29 16:25] LABS: BETA HCG,QUANTITATIVE < 1.0 mIU/ml
[2024-03-29 16:27] LABS: PLATELET ESTIMATE NORMAL
[2024-03-29 16:28] LABS: ANISOCYTOSIS 2+; MICROCYTOSIS 1+; TARGET CELLS FEW
[2024-03-29] MEDS: normal saline 1000ML IV soln IVB ONE (17:05)
[2024-03-29 18:40] VITALS: BP 128/77; PULSE 80; RESP 16; TEMP 98.2; O2SAT 99
[2024-03-29] MEDS: acetaminophen 325mg tablet PO ONE (18:44)
== END 2024-03-29 19:43 | disposition left against medical advice (07) ==
LOC: ER 15:25
DX: O20.9 Hemorrhage in early pregnancy, unspecified (principal); Z53.21 Procedure and treatment not carried out due to patient leaving prior to being seen by health care provider
CPT/HCPCS: 36415; 76856; 80053; 84702; 85008; 85025; 86885; 86900; 86901; 93976; J7030

== ENCOUNTER 2024-11-30 18:47 | Emergency (ER) | payer MEDICAID, SELFPAY ==
[~2024-11-30] VITALS: Ht 167.6 cm; Wt 52.3 kg
[~2024-11-30 18:47] MED LIST changes: -BUDE180A INH; +BUDE180A5 INH; +ONDA-243 PO; -ONDA4TAB12 PO
[2024-11-30] MEDS ORDERED: CEPH-585 PO (20:56)
[2024-11-30] MEDS ORDERED: PRED20TA PO (20:56)
[2024-11-30] MEDS: dexamethasone sod phosphate 10mg/ml inj IM STA (21:00)
[2024-11-30] MEDS: ketorolac trometh 30MG/ML vial 30 MG/ML VIAL IM ONE (21:00)
[2024-11-30 21:24] VITALS: BP 127/64; PULSE 67; RESP 19; TEMP 99.2; O2SAT 98
== END 2024-11-30 21:25 | disposition home or self-care (01) ==
LOC: ER 18:48
DX: L03.114 Cellulitis of left upper limb (principal); L03.113 Cellulitis of right upper limb; K21.9 Gastro-esophageal reflux disease without esophagitis; E03.9 Hypothyroidism, unspecified; M79.7 Fibromyalgia; Z59.02 Unsheltered homelessness; F12.90 Cannabis use, unspecified, uncomplicated; F32.A Depression, unspecified; Z87.442 Personal history of urinary calculi; Z88.1 Allergy status to other antibiotic agents; Z88.2 Allergy status to sulfonamides; Z79.899 Other long term (current) drug therapy
CPT/HCPCS: 96372; 99284; J1100; J1885

== ENCOUNTER 2024-12-11 19:24 | Emergency (ER) | payer MEDICAID ==
[~2024-12-11] VITALS: Ht 172.7 cm; Wt 49.9 kg
[~2024-12-11 19:24] MED LIST changes: +CEPH-585 PO
[2024-12-11 20:19] VITALS: BP 108/68
[2024-12-11] MEDS ORDERED: CEPH500C2 (20:19)
[2024-12-11] MEDS ORDERED: PRED20TA PO (20:19)
[2024-12-11] MEDS: acetaminophen 325mg tablet PO STA (21:53)
[2024-12-11] MEDS: guaiFENesin ER 600mg tablet PO STA (21:53)
[2024-12-11] MEDS: ibuprofen tablet 400 MG TABLET PO ONE (21:53)
[2024-12-11 21:54] LABS: BILIRUBIN,URINE NEGATIVE (Neg); CLARITY,URINE CLEAR (Clear); COLOR,URINE YELLOW (Yellow); GLUCOSE, URINE NEGATIVE (Neg); KETONES,URINE NEGATIVE (Neg); LEUKOCYTE ESTERASE ,URINE NEGATIVE (Neg); NITRITES, URINE NEGATIVE (Neg); OCCULT BLOOD,URINE NEGATIVE (Neg); PROTEIN,URINE NEGATIVE (Neg); UROBILINOGEN,URINE 0.2 E.U/dL (0.2-1.0)
[2024-12-11 21:55] LABS: UA COLLECTION TYPE CLN CATCH MIDSTREAM
[2024-12-11 22:15] LABS: URINE AMPHETAMINE SCREEN POSITIVE (Neg); URINE BARBITUATE SCREEN NEGATIVE (Neg); URINE BENZODIAZEPINES SCREEN NEGATIVE (Neg); URINE CANNABINOID SCREEN POSITIVE (Neg); URINE COCAINE SCREEN NEGATIVE (Neg); URINE METHADONE SCREEN NEGATIVE (Neg); URINE OPIATE SCREEN NEGATIVE (Neg); URINE PHENCYCLIDINE SCREEN NEGATIVE (Neg)
[2024-12-11 22:40] VITALS: PULSE 95; RESP 18; TEMP 98.6; O2SAT 99
== END 2024-12-11 22:48 | disposition home or self-care (01) ==
LOC: ER 19:24
DX: J22 Unspecified acute lower respiratory infection (principal); E03.9 Hypothyroidism, unspecified; K21.9 Gastro-esophageal reflux disease without esophagitis; M79.7 Fibromyalgia; F12.90 Cannabis use, unspecified, uncomplicated; Z87.440 Personal history of urinary (tract) infections; Z20.822 Contact with and (suspected) exposure to COVID-19; Z88.0 Allergy status to penicillin; Z88.1 Allergy status to other antibiotic agents; Z88.2 Allergy status to sulfonamides; Z88.8 Allergy status to other drugs, medicaments and biological substances
CPT/HCPCS: 36415; 71046; 80305; 81003; 87502; 87503; 87811; 99284

== ENCOUNTER 2025-04-28 06:41 | Emergency (ER) | payer MEDICAID ==
[~2025-04-28] VITALS: Ht 167.6 cm; Wt 50.2 kg
[~2025-04-28 06:41] MED LIST changes: -ALBU6.7H14 INH; -BUDE180A5 INH; -CEPH-585 PO; +CEPH500C2; -CLIN-214 PO; -CYCL-1 PO; -FLO0.4C PO; -HYDR-4383 PO; -ONDA-103 PO; -ONDA-243 PO; -ONDA8TAB6 PO; -PHE25R PR; +PRED20TA PO
[2025-04-28 06:42] VITALS: BP 119/66; PULSE 86; RESP 15; TEMP 97.6; O2SAT 100
[2025-04-28] MEDS ORDERED: KEN0.1O TOP (08:00)
[2025-04-28] MEDS: dexamethasone sod phosphate 10mg/ml inj IM STA (08:01)
--- NOTE | 2025-04-28 08:03 | Physician Documentation ---
History of Present Illness ~ Chief Complaint: See Chief Complaint Stated Complaint: HAND BURN Time Seen by MD: 07:49 Primary Medical Doctor: NONE HPI 39-year-old female presenting with a rash that appeared on her hands and her feet starting yesterday. Patient states that she was using her hose to spray some rocks in her pool but did not come into contact with anything else. She states that the rash looks like small red dots with some cracking in the skin. It is on both of her hands and then on her feet as well but no where else on her body. She states that the rash slightly carmen in his tingling but denies any itching, fever, chills or any other associated symptoms. She is otherwise healthy with no other medical issues. Medication Reconciliation Allergies: Coded Allergies: clindamycin (Unverified Allergy, Unknown, 12/11/24) sulfamethoxazole (Verified Allergy, Unknown, 12/11/24) trimethoprim (Verified Allergy, Unknown, 12/11/24) amoxicillin (Verified Adverse Reaction, Unknown, 12/11/24) STATES IT DOESN'T WORK Scheduled Duloxetine Hcl* (Cymbalta*), 25 MG PO DAILY, (Reported) Miscellaneous Medications Cephalexin (Cephalexin), (Reported) Prednisone* (Prednisone*), 1 TAB PO, (Reported) Past Medical History Past Medical History: Gastritis, GERD, Peptic Ulcer Disease, Kidney Stones, UTI, Hypothyroidism, Fibromyalgia, Depression Past Surgical History: noncontributory Alcohol Use: None Drug Use: marijuana Lives with: Family Lives In: Home Occupation: employed Review of Systems All Other Systems at this time: Reviewed and Negative Physical Exam Vital Signs: Temperature: 97.6, Source: Temporal, Heart Rate: 86, Respiratory Rate: 15, BP: 119/66, Pulse Oximetry: 100, Weight: 50.200 Physical Exam I have reviewed the triage vitals. CONST: Well developed and well nourished. In no acute distress HENT: Head Atraumatic EYES: Pupils are equal, round and reactive to light. Normal conjunctiva NECK: Normal range of motion. Supple. CARDIO: Normal rate and regular rhythm. No murmurs, rubs, or gallops. S1, S2. PULM/CHEST: No respiratory distress. Lungs clear to auscultation. No wheeze ABD: Soft and nontender. Nondistended. Bowel sounds normal. No guarding. : Exam deferred MSK: No edema. No deformity. NEURO: Alert and oriented to person, place and time. Moving all extremities SKIN: Warm and dry. There is a slightly erythematous rash with some skin excoriation and minimal plaque formations on hands and feet PSYCH: Normal mood and affect. Good eye contact. Progress Results/Orders Results/Orders Orders - JO ANN LONGORIA MD Dexamethasone Inj (Decadron 10mg/Ml Inj) (04/28/25 07:55) Vital Signs 04/28/25 06:42 Temp 97.6 Pulse 86 Resp 15 B/P (MAP) 119/66 Pulse Ox 100 Medical Decision Making Additional Comment 39-year-old female presenting with a nonspecific rash on her hands and feet. Upon examination it appears that she may be suffering from some irritant contact dermatitis versus eczematous dermatitis versus nonspecific viral rash amongst other etiologies. As the patient did not come into contact with anything unusual I believe that this is likely a eczematous dermatitis however contact dermatitis can not be fully ruled out. Regardless the patient was treated symptomatically. She was given 10 mg of IM dexamethasone in the ED. I will prescribe her a prescription of triamcinolone cream to use on the rash until it resolves. I advised her that should this not resolve with this medication she should follow up with her primary care for further evaluation. Return to the ED with any acutely worsening symptoms. Departure Disposition: HOME / SELF CARE / HOMELESS Impression: Primary Impression: Rash and nonspecific skin eruption Additional Impression: Eczematous dermatitis Condition: Stable Discharge Instructions: Eczema Additional Instructions: Please use the cream that was prescribed as prescribed. Please monitor her symptoms for improvement and resolution. Should they not improve and resolve follow up with her primary care physician. Return to the ED with any acutely worsening symptoms. Referrals: NO PRIMARY CARE PROVIDER (PCP) Prescriptions Triamcinolone Acetonide 0.1% Crm* (Kenalog 0.1% Crm*) 1 Applic Tube 1 APPLIC TOP Q12H for 10 Days, #80 GM Prov: JO ANN LONGORIA MD 04/28/25 Signature Scribe Signature: 1 Attestation: 1 JO ANN LONGORIA MD Apr 28, 2025 08:03
== END 2025-04-28 08:07 | disposition home or self-care (01) ==
LOC: ER 06:42
DX: L30.9 Dermatitis, unspecified (principal); E03.9 Hypothyroidism, unspecified; M79.7 Fibromyalgia; K21.9 Gastro-esophageal reflux disease without esophagitis; Z87.442 Personal history of urinary calculi; F32.A Depression, unspecified; F12.90 Cannabis use, unspecified, uncomplicated; Z88.1 Allergy status to other antibiotic agents; Z88.2 Allergy status to sulfonamides; Z79.899 Other long term (current) drug therapy
CPT/HCPCS: 96372; 99283; J1100